=== PATIENT | male | born 1930 | race Hispanic/Latino ===

== ENCOUNTER 2018-07-29 11:23 | Emergency (ER) | payer MEDICARE ==
[2018-07-29] MEDS ORDERED: Sodium Chloride 0.9% 1,000 ML ONE (13:00)
[2018-07-29 13:02] LABS: Anion Gap 17 mmol/L (10-20); BUN (Urea Nitrogen) 14 mg/dL (8.4-25.7); Calc. Creatinine Clearance 0 mL/min (70-130); Calcium 10.2 mg/dL (7.8-10.44); Carbon Dioxide 26 mmol/L (23-31); Chloride 101 mmol/L (98-107); Estimated GFR-MDRD 57; Glucose 165 mg/dL (83-110); Sodium 140 mmol/L (136-145)
[2018-07-29 13:25] LABS: Band 1 % (5-11); Hemoglobin 14.1 g/dL (14.0-18.0); Lymphocytes 31 % (21-51); MDiff Complete? YES; Mean Corpuscular HGB CONC 34.2 g/dL (32.0-36.0); Mean Corpuscular Volume 93.7 fL (78.0-98.0); Mean Platelet Volume 7.2 fL (7.4-10.4); Monocytes 8 % (0-10); Neutrophil 60 % (42-75); PLT Morphology Comment Appears Adequate; Platelet Count 303 thou/uL (130-400); RBC Distribution Width 11.7 % (11.5-14.5); Red Blood Cell (RBC) Count 4.41 mill/uL (4.70-6.10); White Blood Cell (WBC) Count 7.3 thou/uL (4.8-10.8)
--- NOTE | 2018-07-29 13:33 | RAD ---
PA AND LATERAL CHEST: Date: 07/29/18 HISTORY: Cough and arrhythmia. FINDINGS: Heart size within normal limits. There are atherosclerotic changes of aorta. Lungs are clear of infil trates. Arthritic changes of the spine are noted. IMPRESSION: No active intrathoracic disease. POS: [facility]
[2018-07-29 15:03] LABS: Bilirubin Negative (Negative); Blood, Urine Negative (Negative); Clarity Clear (Clear); Glucose, Urine (Dipstick) Negative (Negative); Leukocyte Negative (Negative); Nitrite Negative (Negative); Protein, Urine (Dipstick) 30 mg/dL (Neg-Trace); Urobilinogen 0.2 mg/dL (0.2-1.0); pH, Urine 5.5 (5.0-9.0)
[2018-07-29 15:17] LABS: Bacteria/HPF Rare-Few HPF (None Seen); Other Casts/LPF 7-10 MIXED CASTS LPF (0-3 Hyaline); RBC/HPF 0-3 HPF (0-3); Squamous Epithelial 0-3 HPF (0-3); WBC/HPF None Seen HPF (0-3)
[2018-07-29 15:18] LABS: Transitional Epithelial 0-3 HPF (0-3)
== END 2018-07-29 15:30 | disposition home or self-care (01) ==
LOC: MADERS 11:23
DX: E86.0 Dehydration (principal); I49.9 Cardiac arrhythmia, unspecified; J06.9 Acute upper respiratory infection, unspecified; E11.9 Type 2 diabetes mellitus without complications; N40.0 Benign prostatic hyperplasia without lower urinary tract symptoms; I10 Essential (primary) hypertension; Z87.891 Personal history of nicotine dependence; Z79.899 Other long term (current) drug therapy
CPT/HCPCS: 36415; 71046; 80048; 81003; 81015; 83880; 85025; 93005; 96360; 96361; J7050

== ENCOUNTER 2018-10-27 08:24 | Inpatient (IN) | payer MEDICARE ==
[2018-10-27] MEDS ORDERED: Sodium Chloride 0.9% 1,000 ML ONE (08:48)
[2018-10-27] MEDS ORDERED: Acetaminophen 325 MG TAB ONE (08:48)
[2018-10-27] MEDS ORDERED: cefTRIAXone\\ROCEPHIN 1 GM VIAL ONE (08:48)
[2018-10-27] MEDS ORDERED: Sodium Chloride 0.9% 100 ML ONE (08:49)
[2018-10-27 09:10] LABS: Bilirubin Negative (Negative); Blood, Urine Large (Negative); Clarity Clear (Clear); Glucose, Urine (Dipstick) 100 mg/dL (Negative); Leukocyte Negative (Negative); Nitrite Negative (Negative); Protein, Urine (Dipstick) 100 mg/dL (Neg-Trace); Urobilinogen 0.2 mg/dL (0.2-1.0)
[2018-10-27 09:12] LABS: #Basophils 0.1 thou/uL (0.0-0.2); #Lymphocytes 0.2 thou/uL (1.20-3.40); #Monocytes 0.5 thou/uL (0.11-0.59); %Basophils 0.6 % (0.0-1.0); %Lymphocytes 2.4 % (21.0-51.0); %Monocytes 5.2 % (0.0-10.0); %Neutrophils 91.8 % (42.0-75.0); Hemoglobin 12.9 g/dL (14.0-18.0); Mean Corpuscular HGB CONC 33.1 g/dL (32.0-36.0); Mean Corpuscular Hemoglobin 31.2 pg (27.0-31.0); Mean Corpuscular Volume 94.1 fL (78.0-98.0); Mean Platelet Volume 8.7 fL (7.4-10.4); Platelet Count 203 thou/uL (130-400); RBC Distribution Width 12.7 % (11.5-14.5); Red Blood Cell (RBC) Count 4.13 mill/uL (4.70-6.10); White Blood Cell (WBC) Count 9.8 thou/uL (4.8-10.8)
[2018-10-27 09:25] LABS: ALT (SGPT) 19 U/L (8-55); AST (SGOT) 44 U/L (5-34); Albumin 4.5 g/dL (3.4-4.8); Alkaline Phosphatase 71 U/L (40-150); Anion Gap 17 mmol/L (10-20); BUN (Urea Nitrogen) 22 mg/dL (8.4-25.7); Bilirubin, Total 0.4 mg/dL (0.2-1.2); Calc. Creatinine Clearance 0 mL/min (70-130); Calcium 9.8 mg/dL (7.8-10.44); Carbon Dioxide 25 mmol/L (23-31); Chloride 100 mmol/L (98-107); Estimated GFR-MDRD 49; Globulin 3.1 g/dL (2.4-3.5); Glucose 208 mg/dL (83-110); Potassium 4.1 mmol/L (3.5-5.1); Protein, Total 7.6 g/dL (5.8-8.1); Sodium 138 mmol/L (136-145)
[2018-10-27 09:29] LABS: Bacteria/HPF 1+ HPF (None Seen); RBC/HPF 0-3 HPF (0-3); Squamous Epithelial 0-3 HPF (0-3); WBC/HPF 0-3 HPF (0-3)
--- NOTE | 2018-10-27 09:44 | CT ---
CT BRAIN WITHOUT CONTRAST: Date: 10/27/18 HISTORY: Altered mental status. Found on floor. COMPARISON: CT brain dated 11/15/17. FINDINGS: Moderate atrophy. 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 Extensive chronic microvascular ischemic changes. Hypodensity present in right brainstem, axial image 10, appears new from the 11/15/17 examination. No midline shift or mass effect. There is mild mucosal sinus thickening of the maxillary sinuses and bilateral ethmoids. The calvarium is intact. IMPRESSION: 1. New from the comparison examination is a subtle hypodensity of the right brainstem at the ramesh. T his is new from the 2018 examination, although not definitively acute. If clinically warranted, MRI r ecommended for infarction. 2. 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 POS: [facility]
--- NOTE | 2018-10-27 09:48 | CT ---
CT CERVICAL SPINE WITHOUT CONTRAST: Date: 10/27/18 HISTORY: Fall. Found on floor. COMPARISON: None. FINDINGS: The odontoid process is intact. The occipital condyles are intact. Moderate degenerative disc space disease at C4-C7 with uncinate process hypertrophy. There is moderat e to severe left C2-C3 facet arthropathy with erosions. No acute fact joint widening. No acute fractu re or malalignment of the cervical spine. Transverse processes are intact, as well as the posterior ribs. There is a hypodensity in the right lobe of the thyroid. Lung apices are clear. IMPRESSION: Degenerative changes. No acute fracture or malalignment. POS: [facility]
--- NOTE | 2018-10-27 09:59 | RAD ---
CHEST 1 VIEW: Date: 10/27/18 INDICATION: History of fever. COMPARISON: Prior exam dated 11/15/17. FINDINGS: Lungs are clear. Heart size is normal. No acute osseous abnormality is evident. IMPRESSION: No acute cardiopulmonary abnormality. POS: [facility]
[2018-10-27 10:11] LABS: CKMB 5.9 ng/mL (0-6.6)
[2018-10-27] MEDS ORDERED: Ibuprofen 600 MG TAB ONE (12:12)
[2018-10-27 13:09] LABS: Lactic Acid 1.5 mmol/L (0.5-2.2)
[2018-10-27 13:48] VITALS: BMI 24.3
[2018-10-27] MEDS ORDERED: Acetaminophen 325 MG TAB PO PRN (16:22)
[2018-10-27] MEDS ORDERED: Albuterol Sulfate 2.5 mg/3 ml Neb NEB PRN (16:27)
[2018-10-27] MEDS ORDERED: HYDROcodone/Acetaminophen 5/325 mg Tablet PO PRN ×2 (17:02)
[2018-10-27] MEDS ORDERED: Ondansetron PF 4 MG/2 ML Vial SLOW IVP PRN (17:02)
[2018-10-27] MEDS: Albuterol Sulfate 2.5 mg/3 ml Neb NEB SCH ×2 (17:16→17:23)
[2018-10-27] MEDS: Sodium Chloride 0.9% 1,000 ML IV SCH (17:23)
[2018-10-27] MEDS: metFORMIN 500 MG TAB PO SCH (17:23)
[2018-10-27] MEDS ORDERED: Ondansetron ODT 4 MG TAB PO PRN (17:39)
[2018-10-27] MEDS: Oseltamivir 75 MG CAP PO SCH (19:58)
[2018-10-27] MEDS: Metoprolol Tartrate 25 MG TAB PO SCH (19:59)
[2018-10-27] MEDS: guaiFENesin ER 600 MG TAB PO SCH (19:59)
[2018-10-28] MEDS: Sodium Chloride 0.9% 1,000 ML IV SCH (05:19)
[2018-10-28 06:07] LABS: #Monocytes 0.4 thou/uL (0.11-0.59); #Neutrophils 5.2 thou/uL (1.40-6.50); %Basophils 0.5 % (0.0-1.0); %Lymphocytes 15.1 % (21.0-51.0); %Monocytes 6.7 % (0.0-10.0); %Neutrophils 77.8 % (42.0-75.0); Hemoglobin 11.4 g/dL (14.0-18.0); Mean Corpuscular HGB CONC 33.6 g/dL (32.0-36.0); Mean Corpuscular Hemoglobin 31.7 pg (27.0-31.0); Mean Corpuscular Volume 94.2 fL (78.0-98.0); Mean Platelet Volume 8.1 fL (7.4-10.4); Platelet Count 165 thou/uL (130-400); RBC Distribution Width 12.4 % (11.5-14.5); Red Blood Cell (RBC) Count 3.59 mill/uL (4.70-6.10); White Blood Cell (WBC) Count 6.6 thou/uL (4.8-10.8)
[2018-10-28 06:21] LABS: Anion Gap 12 mmol/L (10-20); BUN (Urea Nitrogen) 17 mg/dL (8.4-25.7); Calc. Creatinine Clearance 49 mL/min (70-130); Calcium 8.7 mg/dL (7.8-10.44); Carbon Dioxide 26 mmol/L (23-31); Chloride 105 mmol/L (98-107); Estimated GFR-MDRD 65; Glucose 137 mg/dL (83-110); Potassium 3.7 mmol/L (3.5-5.1); Sodium 139 mmol/L (136-145)
[2018-10-28] MEDS: metFORMIN 500 MG TAB PO SCH ×2 (07:56→16:42)
[2018-10-28] MEDS: Aspirin 81 mg Enteric Coated Tablet PO SCH (07:56)
[2018-10-28] MEDS: Albuterol Sulfate 2.5 mg/3 ml Neb NEB SCH ×4 (07:56→20:13)
[2018-10-28] MEDS: Finasteride 5 MG TAB PO SCH (07:57)
[2018-10-28] MEDS: guaiFENesin ER 600 MG TAB PO SCH ×2 (07:57→20:12)
[2018-10-28] MEDS: Enoxaparin Sodium 40 MG/0.4 ML SYRINGE SC SCH (07:57)
[2018-10-28] MEDS: Losartan 25 MG TAB PO SCH (07:58)
[2018-10-28] MEDS: Metoprolol Tartrate 25 MG TAB PO SCH ×2 (07:58→20:12)
[2018-10-28] MEDS: Oseltamivir 75 MG CAP PO SCH ×2 (07:58→20:12)
[2018-10-28] MEDS: cefTRIAXone\\ROCEPHIN 1 GM in Sodium Chloride 0.9% 100 ML IVPB SCH (08:02)
[2018-10-28] MEDS ORDERED: Sodium Chloride 0.9% 1,000 ML BAG ONE (09:42)
[2018-10-29 05:50] LABS: Anion Gap 15 mmol/L (10-20); BUN (Urea Nitrogen) 15 mg/dL (8.4-25.7); Calc. Creatinine Clearance 53 mL/min (70-130); Carbon Dioxide 25 mmol/L (23-31); Chloride 104 mmol/L (98-107); Estimated GFR-MDRD 71; Glucose 119 mg/dL (83-110); Potassium 3.3 mmol/L (3.5-5.1); Sodium 141 mmol/L (136-145)
[2018-10-29 05:54] LABS: Hemoglobin 11.4 g/dL (14.0-18.0); Mean Corpuscular HGB CONC 33.3 g/dL (32.0-36.0); Mean Corpuscular Hemoglobin 31.3 pg (27.0-31.0); Mean Corpuscular Volume 94.2 fL (78.0-98.0); Mean Platelet Volume 9.1 fL (7.4-10.4); Platelet Count 159 thou/uL (130-400); RBC Distribution Width 12.5 % (11.5-14.5); Red Blood Cell (RBC) Count 3.64 mill/uL (4.70-6.10)
[2018-10-29 06:11] LABS: Band 3 % (5-11); Eosinophils 1 % (0-10); Lymphocytes 25 % (21-51); MDiff Complete? YES; Monocytes 6 % (0-10); Neutrophil 65 % (42-75); Platelet Morphology Comment Appears Adequate; RBC Morphology Normal
[2018-10-29] MEDS: metFORMIN 500 MG TAB PO SCH ×2 (08:25→17:11)
[2018-10-29] MEDS: cefTRIAXone\\ROCEPHIN 1 GM in Sodium Chloride 0.9% 100 ML IVPB SCH (08:26)
[2018-10-29] MEDS: Aspirin 81 mg Enteric Coated Tablet PO SCH (08:26)
[2018-10-29] MEDS: Enoxaparin Sodium 40 MG/0.4 ML SYRINGE SC SCH (08:26)
[2018-10-29] MEDS: Albuterol Sulfate 2.5 mg/3 ml Neb NEB SCH ×4 (08:26→20:09)
[2018-10-29] MEDS: Metoprolol Tartrate 25 MG TAB PO SCH ×2 (08:27→20:09)
[2018-10-29] MEDS: Losartan 25 MG TAB PO SCH (08:27)
[2018-10-29] MEDS: Finasteride 5 MG TAB PO SCH (08:27)
[2018-10-29] MEDS: Oseltamivir 75 MG CAP PO SCH ×2 (08:27→20:08)
[2018-10-29] MEDS: guaiFENesin ER 600 MG TAB PO SCH ×2 (08:27→20:09)
[2018-10-29] MEDS ORDERED: Sodium Chloride 0.9% 10 ML ONE (08:31)
[2018-10-29] MEDS: Potassium Chloride 10 MEQ TAB PO SCH (17:12)
[2018-10-30] MEDS: Potassium Chloride 10 MEQ TAB PO SCH ×2 (09:10→16:50)
[2018-10-30] MEDS: metFORMIN 500 MG TAB PO SCH ×2 (09:10→16:50)
[2018-10-30] MEDS: Aspirin 81 mg Enteric Coated Tablet PO SCH (09:11)
[2018-10-30] MEDS: Albuterol Sulfate 2.5 mg/3 ml Neb NEB SCH ×4 (09:11→20:56)
[2018-10-30] MEDS: guaiFENesin ER 600 MG TAB PO SCH ×2 (09:12→20:56)
[2018-10-30] MEDS: Losartan 25 MG TAB PO SCH (09:12)
[2018-10-30] MEDS: Finasteride 5 MG TAB PO SCH (09:12)
[2018-10-30] MEDS: Enoxaparin Sodium 40 MG/0.4 ML SYRINGE SC SCH (09:12)
[2018-10-30] MEDS: Oseltamivir 75 MG CAP PO SCH ×2 (09:13→20:55)
[2018-10-30] MEDS: Metoprolol Tartrate 25 MG TAB PO SCH ×2 (09:13→20:56)
[2018-10-31 05:34] LABS: Anion Gap 12 mmol/L (10-20); BUN (Urea Nitrogen) 14 mg/dL (8.4-25.7); Calc. Creatinine Clearance 57 mL/min (70-130); Calcium 9.2 mg/dL (7.8-10.44); Carbon Dioxide 29 mmol/L (23-31); Chloride 104 mmol/L (98-107); Estimated GFR-MDRD 78; Glucose 117 mg/dL (83-110); Potassium 4.3 mmol/L (3.5-5.1); Sodium 141 mmol/L (136-145)
[2018-10-31] MEDS: Potassium Chloride 10 MEQ TAB PO SCH (08:14)
[2018-10-31] MEDS: metFORMIN 500 MG TAB PO SCH (08:14)
[2018-10-31] MEDS: Aspirin 81 mg Enteric Coated Tablet PO SCH (08:14)
[2018-10-31] MEDS: Albuterol Sulfate 2.5 mg/3 ml Neb NEB SCH (08:14)
[2018-10-31] MEDS: Finasteride 5 MG TAB PO SCH (08:15)
[2018-10-31] MEDS: Metoprolol Tartrate 25 MG TAB PO SCH (08:15)
[2018-10-31] MEDS: Enoxaparin Sodium 40 MG/0.4 ML SYRINGE SC SCH (08:15)
[2018-10-31] MEDS: guaiFENesin ER 600 MG TAB PO SCH (08:15)
[2018-10-31] MEDS: Losartan 25 MG TAB PO SCH (08:15)
[2018-10-31] MEDS: Oseltamivir 75 MG CAP PO SCH (08:15)
[2018-10-31 08:41] VITALS: BP 167/79; TEMP 97.2
--- NOTE | 2018-10-31 10:05 | HP ---
CHIEF COMPLAINT: Weak and high fever. HISTORY OF PRESENT ILLNESS: The patient is an 87-year-old male who lives with his granddaughter and her son. He is independent of his ADLs. He has a history of hypertension, diabetes type 2 that has been well controlled with a last hemoglobin A1c of 7.2 in August of 2018. Additionally, has a history of dyslipidemia and BPH and some memory impairment. On the day prior to admission , the patient had a little cough and was not feeling quite up to his normal. On the morning of the day of admission, family was up and they heard a moan and they went into the patient's bedroom and found him dressed, but lied on the floor on his face and just moaning. He was able to talk a little to them, but he was confused. He was fully dressed. They were able to move him, 1 leg was under the bed. They were able to drag him out and they called 911. He was very weak and could not get up himself. EMS arrived and found that he had a temperature of 103. He was transported to the emergency room. There, he was evaluated and his initial temperature was 101.7, blood pressure 123/63, and O2 saturation 94%. In the house, the temperature had been up to 103. The patient went through further evaluation that included a CT scan of the brain that showed evidence of no acute intracranial abnormality. There was a very subtle hypodensity of the right brainstem at the level of the ramesh that was a new finding compared to CT scan of 2008, probably represents an old PR. He had extensive chronic microangiopathic changes and evidence of an old basal ganglia infarct. His CT scan of the neck showed moderate degenerative disk disease, particularly at C4 through C7 and [id number] facet arthropathy at C2-C3 level with some erosion. There was no evidence of fracture or dislocation. The chest x-ray showed the lungs were clear. There is no evidence of failure or infiltrate. His labs showed an H and H of 12.9 and 38.9, white cell count 9800 with 92% segs and lymphocytes of 3%, and a platelet count of 203,000. His sodium was 139, potassium 4.1, CO2 is 22, creatinine is 1.38, and GFR is 49. His baseline GFR done on 09/20/2018 was 63. His FBS was 208. His liver enzymes were normal except for an AST of 44. His troponin I was 0.029 and CK-MB 5.9. His urinalysis was clear and yellow with specific gravity of 1.020. There was trace amount of ketones, 100 mg/dL of glucose and large amount of blood on the dip. Nitrite was negative. Microscopy showed 0 to 3 wbc's, 0 to 3 rbc's, 0 to 3 epithelial cells, and 1+ bacteria. In the emergency room, the patient had an IV that was started. He was given ibuprofen for the fever, 1 g of Rocephin IV and then later acetaminophen for the fever that had come up over 102. His nasopharyngeal smear for influenza A and B was positive for influenza A and negative for influenza B. The patient was admitted to the hospital with a diagnosis of influenza complicated by dehydration with some prerenal azotemia and bronchitis and with extreme weakness leaving him unable to walk. The patient was seen soon after his admission. His granddaughter, Rhiannon was with him. He was alert and talkative and could give me a little bit history of what was going on, but did not remember fall and his granddaughter, Rhiannon was able to give the details of what happened at home. He says he feels better, but he has cough and he just feels weak. PAST MEDICAL HISTORY: The patient has hypertension, diabetes mellitus type 2, dyslipidemia, GERD, and BPH. The patient has had a liver biopsy in the past for abnormal liver studies, do not know the results of this. He has also had cataract removal with intraocular lens implants. PRESENT MEDICATIONS: 1. Aspirin 81 mg daily. 2. Gemfibrozil 600 mg b.i.d. 3. Finasteride 5 mg once a day. 4. Losartan 25 mg daily. 5. Metoprolol tartrate 25 mg twice today. 6. Metformin 1000 mg twice today. 7. Centrum vitamin daily. ALLERGIES: NO KNOWN ALLERGIES. REVIEW OF SYSTEMS: GENERAL: Ordinarily, the patient is independent of his ADLs. He ambulates with the use of a cane. He is able to feed himself, dress himself , and bathe himself. HEAD AND NECK: The patient's head feels okay. He is very hard of hearing. PULMONARY: The patient complains of a cough and some wheezing. CARDIOVASCULAR: No chest pain. GI: No nausea or vomiting nor diarrhea. : No complaints. NEUROPSYCHIATRIC: The patient has some memory disturbance according to the family. HABITS: The patient quit smoking about 20 years ago. Alcohol, the patient quit drinking about 20 years ago. SOCIAL HISTORY: The patient is a , who lives with his granddaughter and son. PHYSICAL EXAMINATION: GENERAL: Shows a very pleasant 87-year-old male, who is awake, alert and talkative. He is very hard of hearing and has a productive sounding cough. VITAL SIGNS: Show a temperature of 101.3 when he arrived at his room and now has dropped to 100.1; his pulse was 109; respirations 18; O2 saturation 93%; and blood pressure 117/66. His weight is 160. His height is 5 feet and 8 inches. His last weight in the office on 09/20/2018 was 171. HEENT: His head is normocephalic. There is a small area of bruising over the occiput little to the right with tiny abrasion, area was nontender. Eyes, pupils are equal, round, and reactive. Ears, TMs are clear. Nose normal. Mouth and throat, mucous membranes are moist. The patient has an upper denture plate. No teeth on the bottom. He has a bruise on the right lateral border of the tongue. NECK: Carotids are equal and strong. No bruits. Thyroid not enlarged. LUNGS: The patient has good breath sounds, but there is expiratory wheeze and rhonchi present. CARDIOVASCULAR: The patient has a regular rate. No murmurs. ABDOMEN: Soft with no organomegaly nor areas of tenderness. The patient does have a diastasis recti. EXTREMITIES: There is no edema. The patient has some bruising over the right trochanteric area of the hip. There is some bruising over the right elbow. NEUROLOGIC: The patient is alert, talkative, recognizes me, knows that he is in the hospital. He has no focal weakness, but he has generalized weakness that was since he has been in the hospital, he has not been able to get up on his own. IMPRESSION: 1. Influenza. a. Complicated by dehydration with prerenal azotemia. b. Complicated by an asthmatic bronchitis. 2. Diabetes mellitus type 2. a. Good control. Hemoglobin A1c on 09/20/2018 was 7.2. 3. Hypertension. 4. Acute kidney injury. a. Probable prerenal azotemia with a drop in his GFR from 63 on 09/22/2018 to 44 on this admission. 5. Fall. a. Unwitnessed on the morning of admission. b. Resulting in some multiple contusions to the posterior scalp, right elbow , right hip. c. Etiology of the fall, suspect secondary to his severe weakness from the flu. d. Evidence of a bite elio on the tongue. Cannot exclude a possibility of a seizure and a postictal state with his increased confusion and weakness. 6. Generalized weakness. a. Secondary to the acute illness with the influenza A. b. Leaving him unable to ambulate. c. Prior to the onset of this illness, independent of his ADLs. 7. Memory impairment. 8. Benign prostatic hyperplasia. 9. Gastroesophageal reflux disease. PLAN: The patient has been admitted to the hospital due to this acute influenza illness, has been complicated by the asthmatic bronchitis and dehydration with prerenal azotemia and severe weakness. We will place the patient on cautious IV hydration. We will cover him with antibiotics, in case, it was secondary infectious cause to the bronchitis. We will place him on neb treatments for the asthma component. We will also place him on the Tamiflu for the influenza. We will gradually progress his activities and have Physical Therapy work with him once he is a little better. We will place him on droplet isolation. See orders. Job ID: [id number] [facility]
--- NOTE | 2018-10-31 14:11 | PRG ---
DATE OF SERVICE: 10/28/2018 SUBJECTIVE: The patient is sitting up in a bedside chair. He said he feels better today, and his mind is better, and memory is better. He was still weak, but not as weak as yesterday. OBJECTIVE: GENERAL: The patient is sitting up in his chair. He is talkative, very hard of hearing. He looks much better. He is smiling and appears in no distress. VITAL SIGNS: His temperature is 99.3, pulse 83, respirations are 20, his O2 saturation 94% on room air, blood pressure 135/67. During the night, his temperature around midnight did come up to 101.8. LUNGS: The respiratory efforts are little bit diminished, could hear little coarseness on expiration, but not the degree of wheezing that was present yesterday. This may be a little bit more due to his inspiratory efforts and expiratory efforts. HEART: Regular rate. LABORATORY DATA: His lab shows an H and H of 11.4 and 33.9, white blood cell count 6600 with a segment count of 78%, lymphocytes 15%, and platelet count of 165. His sodium is 139, potassium 3.7, BUN dropped to 17, creatinine dropped to 1.08, GFR improved to 65, glucose 137. His 1 of 2 blood culture was positive for gram-variable aminata, suspect this probably will end up being a contamination. The urine culture grew a gram-negative aminata with colony count was only 15 to 25 CFU/ mL. This was probably representing a mixed culture and contamination. ASSESSMENT: 1. Influenza A. a. Complicated by asthmatic bronchitis, that has improved. b. Complicated by dehydration with prerenal azotemia, that has improved. c. Complicated by profound weakness and inability to ambulate, improved, where he is tolerating sitting in a chair as of 10/28. 2. Hypertension, controlled. 3. Diabetes mellitus type 2, well controlled. 4. Generalized weakness. a. Secondary to the influenza. 5. Memory impairment. PLAN: One positive blood culture probably represents contamination. Overall, he looks better. We will continue present care. His dehydration looks resolved. We will discontinue the IV fluids. If he continues to improve tomorrow, we will start physical therapy. Job ID: [id number] [facility]
--- NOTE | 2018-10-31 14:11 | PRG ---
DATE OF SERVICE: 10/29/2018 SUBJECTIVE: The patient says he feels a lot better. His cough is better. He said he worked some with Physical Therapy and feels better. OBJECTIVE: GENERAL: The patient is sitting up in his chair. He looks much better. He is not coughing. He appears in no distress. VITAL SIGNS: Shows a temperature of 98.1. He has had no fever over the last 24 hours. His pulse is 78, respirations 20, O2 saturation 97% on room air, and blood pressure 128/62. LUNGS: Clear. HEART: Regular rate. EXTREMITIES: No edema. LABORATORY DATA: The 1 of 2 blood cultures was positive for Bacillus species, which was probably a contaminant. His urine culture grew Citrobacter koseri, colony count though was only 10,000 to 00796, had a figueroa-sensitivity. His lab shows an H and H of 11.4 and 34.3, white cell count 5000 with 65% segs, 3% bands, 25% lymphocytes, platelet count of 159,000. Sodium 141, potassium 3.3, BUN is 15, creatinine 0.99, GFR up to 71, and glucose 119. ASSESSMENT: 1. Influenza A. a. Complicated by asthmatic bronchitis, resolving as of 10/29. b. Complicated by dehydration with prerenal azotemia, resolved as of 10/29. c. Complicated by severe weakness, improving as of 10/29. d. Overall improved as of 10/29. 2. Asthmatic bronchitis. a. Improved with no wheezing nor fever as of 10/29. 3. Acute kidney injury. a. Resolved with GFR up to 71 as of 10/29. 4. Diabetes mellitus, type 2, controlled. 5. Hypertension. 6. Generalized weakness. a. Improved as of 10/29/2018. PLAN: Continue the Tamiflu. We will discontinue the Rocephin and the IV site. Continue PT. Job ID: [id number]
--- NOTE | 2018-10-31 14:12 | PRG ---
DATE OF SERVICE: 10/30/2018 SUBJECTIVE: The patient is feeling much better today. His cough is resolving. He is feeling a little stronger. OBJECTIVE: GENERAL: The patient is walking back with his walker from the bathroom. He is alert, talkative, appears very comfortable and in no distress. VITAL SIGNS: Show a temp of 97.6, pulse 73, respirations 18, O2 saturation 95% on room air. Blood pressure 166/97, earlier 149/72. LUNGS: Clear. HEART: Regular rate. EXTREMITIES: No edema. LABORATORY DATA: FBS this morning was 130. ASSESSMENT: 1. Influenza: a. A. Complicated by asthmatic bronchitis that has resolved as of 10/30. b. B. Complicated by dehydration with prerenal azotemia that has resolved as of 10/30. c. D. Marked improvement. 2. Hypertension, controlled. 3. Generalized weakness, improved. PLAN: Continue present care. Anticipate discharge in the morning. Job ID: [id number]
--- NOTE | 2018-11-01 07:38 | DIS ---
DATE OF ADMISSION: 10/27/2018 DATE OF DISCHARGE: 10/31/2018 Admitted to acute care on 10/27/2018 and discharged on 10/31/2018. FINAL DIAGNOSIS: 1. Influenza A. a. Complicated by dehydration with prerenal azotemia that has resolved. b. Complicated by asthmatic bronchitis that has resolved. c. Presented with fever, fall, and some alteration of mental status. 2. Diabetes, type 2, good control. 3. Hypertension. 4. Hyperlipidemia. 5. Benign prostatic hyperplasia. 6. Hearing impairment. SUMMARY: The patient is an 87-year-old male, who is hearing impaired even with hearing aids. He has a history of hypertension, diabetes, BPH, and hyperlipidemia. His diabetes has been well controlled as has his blood pressure. He lives with family members, but is independent of all his ADLs. Family helps him with his assisted ADLs. The patient was brought to the emergency room on the morning of 10/27 with a fever of 103. He had gotten up out of bedrest and then apparently sat back down and fell. The family heard him fall and he was lying partially under the bed and seemed confused, and very hot from the fever. He was brought to the emergency room. His family said that the night before, he developed a little cough and just not feeling well. He had evaluation in the emergency room, showed that his white blood cell was 9800 with 92% segs, hemoglobin of 12.9, and platelet count of 203. His BUN was 22, creatinine 1.38, and GFR of 49. These renal function studies all up higher than normal and GFR lower than normal. Glucose was 208. His CT scan of the head showed no acute intracranial abnormalities. Chest x-ray was clear. The patient was started on IV fluids and also was given IV Rocephin after blood and urine cultures were obtained. His urine had 0-3 wbc's and 0-3 rbc's. The patient's nasopharyngeal swab for influenza A and B were both positive. The patient was started on IV Rocephin with leukocytosis, the cough and wheezing that he was doing and also on Tamiflu. He was dehydrated. His fever was coming down after administering Tylenol and ibuprofen. As this came down, his mental status returned to his baseline. The patient was admitted to the hospital for continuation of treatment for the asthmatic bronchitis and the influenza, and the dehydration. HOSPITAL COURSE: During his hospitalization, the patient was continued on the Rocephin because of the asthmatic bronchitis. He had diffuse wheezes and rhonchi. He was also given Mucinex and albuterol nebulization treatments. He was treated with Tamiflu 75 mg twice today and scheduled for 5 days. The patient showed significant improvement with IV hydration. His prerenal azotemia resolved. His admission BUN of 22 dropped to 14. His admission creatinine of 1.38 dropped to 0.92 and his GFR jose rafael from 44 to 78. His glucose was 129 fasting on his day of discharge. His hemoglobin A1c was 7.2 on 09/20. The patient showed significant improvement. He was placed in droplet isolation. The wheezing all resolved, rhonchi all resolved. His strength improved. Physical Therapy worked with him and he did very well. The dehydration resolved. He had no more falls and he remained at his normal mental status. By 10/31, his condition was such and felt that he could be managed at home. He will complete his Tamiflu at home. He lacks 2 tablets, 1 this afternoon and 1 tomorrow. DISPOSITION: DIET: Consistent carbohydrate diet. No added salt. ACTIVITIES: As tolerated. MEDICATIONS: 1. Acetaminophen 325 mg 2 every 4 hours as needed. 2. Aspirin 81 mg daily. 3. Finasteride 5 mg daily. 4. Losartan 25 mg daily. 5. Gemfibrozil 600 mg b.i.d. 6. Metformin 1000 mg b.i.d. 7. Metoprolol tartrate 25 mg b.i.d. 8. Tamiflu 75 mg, 1 this afternoon and 1 in the morning, which will complete his 10 doses. FOLLOWUP: The patient will be seen in followup in my office in 1 week. Job ID: [id number]
== END 2018-10-31 09:42 | disposition home or self-care (01) | DRG 194 ==
LOC: MADERS 08:24 → MADMS 11:52 → OBSVTOIN 17:00
PROVIDERS: ADMIT Family Medicine; ATTEND Family Medicine
DX: J10.1 Influenza due to other identified influenza virus with other respiratory manifestations (principal); N17.9 Acute kidney failure, unspecified; I10 Essential (primary) hypertension; E11.9 Type 2 diabetes mellitus without complications; E86.0 Dehydration; J45.909 Unspecified asthma, uncomplicated; N40.0 Benign prostatic hyperplasia without lower urinary tract symptoms; K21.9 Gastro-esophageal reflux disease without esophagitis; F06.8 Other specified mental disorders due to known physiological condition
CPT/HCPCS: 36415; 36416; 70450; 71045; 72125; 80048; 80053; 81003; 81015; 82553; 83605; 84484; 85025; 87040; 87077; 87086; 87186; 87804; 93005; 93010; 94640; 96365; J0696; J1650; J7050; J7611